=== PATIENT | male | born 1975 | race African-American/Black ===

== ENCOUNTER 2017-10-30 01:18 | Emergency (ER) | payer SELFPAY | END 2017-10-30 01:20 | disposition left against medical advice (07) | LOC: ER 01:18 | DX: L02.416 Cutaneous abscess of left lower limb (principal); L02.415 Cutaneous abscess of right lower limb; Z53.21 Procedure and treatment not carried out due to patient leaving prior to being seen by health care provider ==

== ENCOUNTER 2017-11-20 16:30 | Emergency (ER) | payer SELFPAY | END 2017-11-20 18:15 | disposition home or self-care (01) | LOC: ER 18:15 | DX: S81.801A Unspecified open wound, right lower leg, initial encounter (principal); F17.200 Nicotine dependence, unspecified, uncomplicated; Z86.14 Personal history of Methicillin resistant Staphylococcus aureus infection; X58.XXXA Exposure to other specified factors, initial encounter; Y93.89 Activity, other specified; Y92.89 Other specified places as the place of occurrence of the external cause; Y99.8 Other external cause status | CPT/HCPCS: 99283 ==